=== PATIENT | male | born 1995 | race Caucasian/White ===

== ENCOUNTER → 2017-06-22 18:22 | Outpatient (CLI) | payer OTHER, SELFPAY ==
--- NOTE | 2017-06-22 10:52 | TONS_PTH ---
PATIENT: SADI CRUZ LOC: [facility] U#:[id number] AGE/SX: 29/M ROOM: RE06/22/[address]: Dr. Reyes Barreto MD : 1995 BED: DIS: SPEC #: [id number] RECD: 06/22/17 15:38 STATUS: JANY KATTY #: [id number] ELIJAH: 06/22/17 10:[address]: Reyes Barreto DEPT: SURGICAL PATHOLOGY RECD BY: Travis Pride ENTERED: 06/23/17 10:29 SP TYPE: TONSILS OTHR DR: MICHELLE Tissues: Tonsil, NOS Procedures: Surgery Specimen Level III HEADER OPERATION: Tonsillectomy PRE-OP DIAGNOSIS: Hypertrophy of tonsils, chronic tonsillitis, obstructive sleep apnea TISSUE SUBMITTED: Tonsils (right tagged with pin) MICROSCOPIC DIAGNOSIS Bilateral tonsils: Reactive lymphoid hyperplasia, consistent with chronic tonsillitis. Focal actinomyces colonization. SJ:eleazar 06/24/17 MICROSCOPIC DESCRIPTION Slides are reviewed. GROSS DESCRIPTION Received is one container labeled with the patient's name and designated tonsils - pin on right are two tonsils that in aggregate weigh 11.5 gm. The right tonsil has a pin on it and measures 3 x 2.5 x 2 cm. The left tonsil measures 3.5 x 2.5 x 1.5 cm. Both tonsils are similar in appearance. The external surfaces are pink-grant, smooth, glistening and somewhat lobulated. Focally they are hemorrhagic, granular and bear cautery artifact. Serial cross sections through the tonsils reveal normal tonsillar architecture. Sections are submitted in two cassettes as follows: 1 - right tonsil, 2 - left tonsil. / Flor 06/23/17 TC:3 [facility]: [id number] x2
== END ==
PROVIDERS: Visit Provider Otolaryngology Otolaryngology/Facial Plastic Surgery
DX: J35.01 Chronic tonsillitis (principal); G47.33 Obstructive sleep apnea (adult) (pediatric)
CPT/HCPCS: 88304

== ENCOUNTER 2021-01-20 16:58 | Emergency (ER) | payer OTHER, SELFPAY ==
[2021-01-20 16:59] VITALS: BP 165/116; PULSE 106; RESP 18; TEMP 36.2; O2SAT 97; BMI 49.9
[2021-01-20 17:55] VITALS: BP 167/101; PULSE 108; RESP 19; O2SAT 98
[2021-01-20] MEDS: 0.9% Normal Saline 1,000 ML 1000 ML IV (18:34)
--- NOTE | 2021-01-20 18:35 | EX.ED.DYSGE1 ---
HPI History of Present Illness Chief Complaint: Abd Pain Narrative Narrative: 25-year-old male presenting for nausea, diarrhea. Patient states this started on . Patient states he has been holding down some food and fluids but has progressive abdominal cramping diffusely. He states he feels like he is going to vomit but does not. His diarrhea has persisted. He denies black or bloody stools. His initial symptoms started about a week before and he had a cough, chills, low-grade fever. Patient works for [employer] and was tested for COVID-19 at that point and tested negative. Patient states that he does not currently have any respiratory symptoms and states that is all GI. Patient has not been on any recent antibiotics. His fevers have resolved. He has continued abdominal cramps and body aches. Patient denies any urinary symptoms. He denies any medical problems. Patient states that he does not want to be vaccinated for COVID-19. PFSH PFSH Home Medications ondansetron HCl [Zofran] 4 mg PO Q8H PRN #20 tab 01/20/21 [Rx Last Taken Unknown] Allergy/AdvReac Type Severity Reaction Status Date / Time No Known Allergies Allergy Verified 01/20/21 17:01 Surgical History Hx of tonsillectomy Social History Smoking Status: Never smoker ROS ROS ED Constitutional Constitutional ED: Reports chills and fever(s) Eyes Eyes: Denies blurry vision or diplopia ENT ENT ED: Denies rhinorrhea or sore throat Cardiovascular Cardiovascular: Denies chest pain or palpitations Respiratory/Chest Respiratory/Chest: Reports cough; Denies dyspnea or dyspnea on exertion Gastrointestinal Gastrointestinal: Reports abdominal pain, diarrhea, nausea and vomiting Genitourinary Genitourinary ED: Denies dysuria or hematuria Musculoskeletal Musculoskeletal: Reports myalgias Integumentary Denies Abrasions or rash Neurologic Neurologic: Reports headache(s); Denies paresthesias EXAM Physical Exam Const Vital Signs: 01/20/21 16:59 01/20/21 17:55 01/20/21 20:08 Temperature 97.1 F L Temperature Source Temporal Pulse Rate 106 H 108 H 83 Respiratory Rate 18 19 H 19 H Blood Pressure 165/116 H 167/101 H 138/77 H Blood Pressure Mean 132 123 97 Pulse Ox 97 98 97 Oxygen Delivery Method Room Air Room Air Room Air Positive well nourished General Appearance ED: NAD HEENT Reports moist mucous membranes Negative for trauma Eyes PERRL and EOMs intact bilaterally General Eye ED: Negative for pale conjunctiva or scleral icterus Resp normal respiratory effort and clear to auscultation bilaterally Cardio regular rate Rate: tachycardic GI normal to inspection, nondistended, normoactive bowel sounds Extremity normal to inspection General Extremety ED: Negative for edema or tenderness General Extremity: Negative for edema Neuro oriented x3 and CN's II-XII intact bilaterally Sensorium / Orientation: alert Psych mental status grossly normal Skin no rashes or lesions noted and no wounds MDM MDM Lab Data Attestation: I reviewed the patient's lab results. Lab results narrative: Patient presenting with nausea, vomiting, diarrhea. He states that he no longer has any fever or respiratory symptoms. He is complaining of all GI symptoms at this time. He is given Zofran on arrival and feels improved. He is also given a liter of normal saline. Lab work shows no leukocytosis or left shift. Hemoglobin is stable. Renal function and electrolytes are normal. Patient does have an elevated total bilirubin at 1.5, AST 64, ALT 114, lipase is negative. Patient does not have any focal tenderness over the right upper quadrant to suggest gallbladder disease. Chest x-ray on my interpretation shows no acute cardiopulmonary process and the radiologist does agree. I do have testing pending for COVID-19 PCR given the duration of his symptoms and this could likely be the source of elevated LFTs. Patient feels improved after treatment. He will be given Zofran and counseled to hydrate well at home. Patient given return precautions. Impression: 1. Gastroenteritis likely viral #2 elevated LFTs Labs: Laboratory Results - last 24 hr 01/20/21 01/20/21 01/20/21 18:56 18:56 18:56 WBC 9.7 RBC 5.37 Hgb 15.8 Hct 46.1 MCV 85.8 MCH 29.4 MCHC 34.3 RDW Std Deviation 39.6 RDW Coeff of Hattie 12.9 Plt Count 259 MPV 9.9 Immature Gran % (Auto) 0.300 Neut % (Auto) 70.0 Lymph % (Auto) 16.5 L [place] % (Auto) 10.6 H Eos % (Auto) 2.3 Baso % (Auto) 0.3 Absolute Neuts (auto) 6.8 Absolute Lymphs (auto) 1.60 Nucleated RBC % 0 Differential Comment SCANNED Sodium 138 Potassium 3.5 Chloride 109 H Carbon Dioxide 21.0 Anion Gap 8 BUN 11 Creatinine 0.78 Estim Creat Clear Calc 154.19 Est GFR (MDRD) Af Amer 154 Est GFR (MDRD) Non-Af 128 BUN/Creatinine Ratio 14.0 Glucose 87 Calcium 8.4 L Total Bilirubin 1.50 H AST 64 H ALT 114 H Alkaline Phosphatase 78 Total Protein 7.8 Albumin 3.8 Globulin 4.0 Albumin/Globulin Ratio 1.0 Lipase 86 Procalcitonin 0.09 Urine Color Urine Clarity Urine pH Ur Specific [place] Urine Protein Urine Glucose (UA) Urine Ketones Urine Occult Blood Urine Nitrite Urine Bilirubin Urine Urobilinogen Ur Leukocyte Esterase Urine RBC Urine WBC Ur Squamous Epith Cells Urine Bacteria Urine Mucus 01/20/21 20:06 WBC RBC Hgb Hct MCV MCH MCHC RDW Std Deviation RDW Coeff of [place] Plt Count MPV Immature Gran % (Auto) Neut % (Auto) Lymph % (Auto) [place] % (Auto) Eos % (Auto) Baso % (Auto) Absolute Neuts (auto) Absolute Lymphs (auto) Nucleated RBC % Differential Comment Sodium Potassium Chloride Carbon Dioxide Anion Gap BUN Creatinine Estim Creat Clear Calc Est GFR (MDRD) Af Amer Est GFR (MDRD) Non-Af BUN/Creatinine Ratio Glucose Calcium Total Bilirubin AST ALT Alkaline Phosphatase Total Protein Albumin Globulin Albumin/Globulin Ratio Lipase Procalcitonin Urine Color [place] Urine Clarity Clear Urine pH 6.0 Ur Specific [place] 1.020 Urine Protein 30 H Urine Glucose (UA) Normal Urine Ketones 15 H Urine Occult Blood 10 H Urine Nitrite Negative Urine Bilirubin 3 H Urine Urobilinogen 4 H Ur Leukocyte Esterase 25 H Urine RBC 0-5 SEEN Urine WBC 0-5 SEEN Ur Squamous Epith Cells 0-5 SEEN Urine Bacteria 0 SEEN Urine Mucus 3+ Radiography Diagnostic Testing: Radiology Impression Chest X-Ray 01/20/21 19:10 IMPRESSION: Normal x-ray examination of the chest. Electronically Signed: Go Huynh MD at 20:10 EDT , Service support , Discharge Plan Triage Chief Complaint: Abd Pain ED Provider: Haroon Reddy Dx/Rx/DC Orders Instructions: ED Gastroenteritis, Viral (Adult) Prescriptions: New ondansetron HCl [Zofran] 4 mg tablet 4 mg PO Q8H PRN (Reason: nausea and vomiting) Qty: 20 RF: 0 Primary Care Provider: Care Physician,No Primary Referrals: Alonso Casiano MD [STAFF PHYSICIAN] - As soon as possible Care Physician,No Primary [Primary Care Provider] - Disposition Disposition: Home, Self Care
[2021-01-20 19:10] LABS: Absolute Neutrophil Count 6.8 X10^3/uL (2.0-7.7); Basophil# 0.03 X10^3/uL; Basophil% 0.3 % (0-1); Eosinophil# 0.22 X10^3/uL; Eosinophils% 2.3 % (0-5); Hematocrit 46.1 % (40-54); Hemoglobin 15.8 g/dL (13.0-16.5); Lymphocyte % 16.5 % (19-41); Mean Corp Hgb Conc 34.3 g/dL (32-36); Mean Corpuscular Hgb 29.4 pg (27.0-32.0); Mean Corpuscular Volume 85.8 fL (80-94); Mean Platelet Vol. 9.9 fl (6.2-12.0); Monocyte# 1.03 X10^3/uL; Monocyte% 10.6 % (0-10); NRBC Flagged by Analyzer 0 % (0-5); Neutrophil # 6.77 X10^3/uL (2.7-7.7); POSITIVE COUNT YES; Platelet Count 259 K/mm3 (150-450); RBC Distribution Width CV 12.9 % (11.6-14.6); RBC Distribution Width SD 39.6 fl (35.1-43.9); Red Blood Count 5.37 M/mm3 (4.6-6.2); White Blood Count 9.7 K/mm3 (4.4-11.0)
--- NOTE | 2021-01-20 19:10 | RAD_ITS ---
STUDY: X-RAY CHEST REASON FOR EXAM: Male, 25 years old. cough TECHNIQUE: Single AP portable view of the chest. COMPARISON: None. FINDINGS: The lungs are clear and expanded. There is no demonstrated pleural abnormality. Normal size heart. Normal mediastinum and jose. Normal visualized pulmonary arteries. Normal visualized aortic arch and descending thoracic aorta. Normal visualized thoracic spine. Normal visualized ribs, clavicles, and shoulders. There is no demonstrated abnormality of the visualized soft tissue structures of the upper abdomen. RAD/Chest 1 View (Portable) IMPRESSION: Normal x-ray examination of the chest. Electronically Signed: Go Huynh MD at 20:10 EDT , Service support ,
[2021-01-20 19:27] LABS: AST(SGOT) 64 U/L (15-37); Alanine Aminotransfer ALT/SGPT 114 U/L (16-61); Albumin, Serum 3.8 g/dL (3.2-5.0); Alkaline Phosphatase 78 U/L (45-117); Anion Gap 8 (5-15); BUN 11 mg/dL (7-18); Calcium,Total 8.4 mg/dL (8.5-10.1); Chloride 109 mmol/L (98-107); Creatinine, Serum 0.78 mg/dL (0.70-1.30); EST Glomerular Filtration Rate 128 mL/min (>60); Est Glom Filt Rate - Afr Amer 154 mL/min (>60); Estimated Creatinine Clearance 154.19 ml/min; Glucose 87 mg/dL (74-106); Lipase 86 U/L (73-393); Potassium 3.5 mmol/L (3.5-5.1); Protein, Total 7.8 g/dL (6.4-8.2); Sodium Level 138 mmol/L (136-145)
[2021-01-20 19:33] LABS: Procalcitonin 0.09 ng/mL (0.00-0.09)
[2021-01-20 19:37] LABS: Differential Indicated SCAN CRITERIA MET
[2021-01-20 20:08] VITALS: BP 138/77; PULSE 83; RESP 19; O2SAT 97
[2021-01-20 20:08] LABS: Differential Comment SCANNED
[2021-01-20 20:16] LABS: Bacteria 0 SEEN /hpf (None Seen)
[2021-01-20 20:20] LABS: Color, Urine Amber (Yellow); Glucose, Dipstick Normal (Normal); Ketone-Dipstick 15 mg/dl (Negative); Leukocyte Esterase-Dipstick 25 /ul (Negative); Nitrite-Dipstick Negative (Negative); Occult Blood-Urine 10 /ul (Negative); Protein-Dipstick 30 mg/dl (Negative); Urine Clarity Clear (Clear); Urine Urobilinogen 4 mg/dl (Normal)
[2021-01-20 20:21] LABS: Urine Bilirubin Dipstick 3 mg/dL (Negative)
[2021-01-20 20:46] LABS: Mucous, Urine 3+ /hpf (<or=2+); Red Blood Cells-Urine 0-5 SEEN /hpf (0-5); Squamous Epithelial Cells - UA 0-5 SEEN /hpf (0-5); White Blood Cells 0-5 SEEN /hpf (0-5)
[2021-01-20 22:37] VITALS: BP 128/74; PULSE 92; RESP 14; RESP 16; O2SAT 98
[2021-01-20 22:40] LABS: Probe Check PASS; Specimen Processing Control PASS
== END 2021-01-20 22:51 | disposition home or self-care (01) ==
PROVIDERS: Emergency Provider Student in an Organized Health Care Education/Training Program
DX: K52.9 Noninfective gastroenteritis and colitis, unspecified (principal); R94.5 Abnormal results of liver function studies
CPT/HCPCS: 71045; 80048; 80053; 81001; 83690; 84145; 85025; 87635; 96360; 96361; 99284; J7030; U0005; U0003